=== PATIENT | male | born 1985 ===

== ENCOUNTER 2016-12-06 22:21 | Emergency (ER) | payer OTHER ==
[2016-12-06 22:21] VITALS: BMI 36.8
[2016-12-06 22:39] VITALS: RESP 14; O2SAT 97
--- NOTE | 2016-12-06 22:42 | C.PDOC ---
History Of Present Illness 30 yo male, hx of htn, presents iwth cp. as per pt, has pain to left side of chest. as per pt, had similar pain 1 month ago, and was admitted at another facilty. pt states "he had possible infection" in his chest. pt is poor historina. pt is located to left side, non radiating, sharp pain, worse with inspriation. no fevers, n/v/d, urinary changes, (+)subjective dyspnea Time Seen by Provider: 12/06/16 22:25 Chief Complaint (Nursing): Chest Pain Past Medical History Reviewed: Historical Data, Nursing Documentation, Vital Signs Vital Signs: Last Vital Signs Temp 97.5 F L 12/06/16 23:30 Pulse 80 12/06/16 23:30 Resp 14 12/06/16 23:30 BP 130/90 12/06/16 23:30 Pulse Ox 97 12/06/16 23:45 - Medical History PMH: HTN Denies: Chronic Kidney Disease - [facility] Procedures EXCIS KNEE SEMILUN CARTL (07/25/14) Family History: States: Unknown Family Hx - Social History Hx Tobacco Use: No Hx Alcohol Use: Yes Hx Substance Use: Yes - Immunization History Hx Tetanus Toxoid Vaccination: No Hx Influenza Vaccination: No Hx Pneumococcal Vaccination: No Review Of Systems Except As Marked, All Systems Reviewed And Found Negative. Cardiovascular: Positive for: Chest Pain Respiratory: Positive for: Shortness of Breath Physical Exam - Physical Exam Appears: Well, No Acute Distress Skin: Normal Color, Warm, Dry Eye(s): bilateral: Normal Inspection, PERRL, EOMI Nose: Normal Throat: Normal Neck: Normal Cardiovascular: Rhythm Regular Respiratory: Normal Breath Sounds, Other ((+)mildly diminshes at bases) Gastrointestinal/Abdominal: Normal Exam, Soft, Other ((+)obese) Back: Normal Inspection Extremity: Normal ROM Extremity: Bilateral: Other (no swelling) ED Course And Treatment - Laboratory Results Result Diagrams: 12/06/16 22:59 12/06/16 22:59 O2 Sat by Pulse Oximetry: 97 Medical Decision Making Medical Decision Making: cp r/o acs, pe. labs imaging pending ekg nsr 99 lvh, non interval chagnes from previous. cxr no acute disease as read by me. no intervla change from previous 1140: pt reassesed: pt comfortable playing on phone in nad. speaking full sentences. dimer neg. bnp neg. no e/o of anemia. pt states he was [place] [facility] [place] "[place] test normal", including echo, multiple ekgs, CT. pt states comfortable to be d/c home. advise outpt f/u and return precautions. Disposition - Disposition Referrals: Ho Solorio MD [Staff Provider] - Reilly Jimenez MD [Staff Provider] - Disposition: HOME/ ROUTINE Disposition Time: 23:41 Condition: STABLE Additional Instructions: please follow up with your doctor/clinic and specialsit. return to er with worsening symptoms or concerns. Prescriptions: Naproxen [Naprosyn] 500 mg PO BID PRN #14 tab PRN Reason: Pain, Mild (1-3) Instructions: Chest Pain (ED), Dyspnea (ED) - Clinical Impression Clinical Impression: Chest pain
[2016-12-06 23:01] LABS: BASO # 0.1 K/uL (0.0-0.2); BASO % 0.6 % (0.0-2.0); EOS # 0.2 K/uL (0.0-0.7); EOS % 1.6 % (0.0-4.0); HEMOGLOBIN 14.5 g/dL (12.0-18.0); LYMPH # 2.5 K/uL (1.0-4.3); LYMPH % 26.1 % (20.0-40.0); MEAN CORPUSCULAR HEMOGLOBIN 26.8 pg (27.0-31.0); MEAN CORPUSCULAR HGB CONC 33.8 g/dL (33.0-37.0); MEAN PLATELET VOLUME 8.1 fL (7.2-11.7); MONO # 0.6 K/uL (0.0-0.8); MONO % 6.8 % (0.0-10.0); NEUT # 6.1 K/uL (1.8-7.0); NEUT % 64.9 % (50.0-75.0); NRBC % 0.1 % (0.0-2.0); RBC 5.42 Mil/uL (4.40-5.90); RED CELL DISTRIBUTION WIDTH 13.6 % (11.5-14.5); WHITE BLOOD COUNT 9.5 K/uL (4.8-10.8)
[2016-12-06 23:04] LABS: MEAN CELL VOLUME 79.4 fL (80.0-94.0)
[2016-12-06 23:09] LABS: ALBUMIN 4.1 g/dL (3.5-5.0)
[2016-12-06 23:12] LABS: ALB/GLOB RATIO 1.2 (1.0-2.1); AST/SGOT 26 U/L (17-59); BLOOD UREA NITROGEN 14 mg/dL (9-20); GFR AFRICAN-AMERICAN > 60; GFR NON-AFRICAN AMERICAN > 60
[2016-12-06 23:13] LABS: ALT/SGPT 45 U/L (21-72); CALCIUM 9.1 mg/dl (8.6-10.4)
[2016-12-06 23:20] LABS: PARTIAL THROMBOPLASTIN TIME 38 SECONDS (21-34); PROTHROMBIN TIME 10.7 SECONDS (9.7-12.2)
[2016-12-06 23:21] LABS: B-TYPE NATRIURETIC PEPTIDE 48.2 pg/mL (0-450)
[2016-12-06 23:35] LABS: D DIMER < 200 ng/mlDDU (0-243)
[2016-12-07 00:53] VITALS: BP 130/90; PULSE 80; TEMP 97.5
--- NOTE | 2016-12-07 08:30 | RAD ---
PROCEDURE: CHEST RADIOGRAPH, 1 VIEW HISTORY: chest pain COMPARISON: 06/27/2015 FINDINGS: LUNGS: Mild venous congestion. PLEURA: No pneumothorax or pleural fluid seen. CARDIOVASCULAR: Limited evaluation given semi-erect portable technique. OSSEOUS STRUCTURES: No significant abnormalities. VISUALIZED UPPER ABDOMEN: Normal. OTHER FINDINGS: None. IMPRESSION: Mild venous congestion.
--- NOTE | 2016-12-09 08:43 | CARD ---
APPROVED REPORT EKG Measurement Heart [id number] <Conclusion> Normal sinus rhythm Voltage criteria for left ventricular hypertrophy Abnormal ECG
== END 2016-12-07 00:53 | disposition home or self-care (01) ==
LOC: C.ER 22:21
DX: R07.89 Other chest pain (principal)